=== PATIENT | male | born 1945 | race Caucasian/White ===

== ENCOUNTER 2019-06-12 19:40 | Observation (INO) | payer MEDICARE, OTHER ==
[~2019-06-12] VITALS: Ht 177.8 cm; Wt 95.3 kg
[2019-06-12] MEDS ORDERED: ZOCOR10 MG PO (19:49)
[2019-06-12] MEDS ORDERED: COZAAR50 MG PO (19:49)
--- NOTE | 2019-06-12 19:54 | NUR ---
PT REPORTS PT HAS 325 OF ASPIRIN AT 1800. PT REPORTS NAUSEA AFTER ASPIRIN.PT DENIES MEMORY OF THIS.
--- NOTE | 2019-06-12 20:01 | NUR ---
PT REPORTS SHE NOTICED CHANGE IN MENTAL STATUS AROUND 1630.
[2019-06-12 20:59] LABS: BASOPHILS 0.2 % (0-2); EOSINOPHILS 0.3 % (0-7); HEMOGLOBIN 14.8 g/dL (13.5-17.5); IMMATURE GRANULOCYTES 0.2 % (0-5); LYMPHOCYTES 10.2 % (15-50); MCH 31.9 pg (26.0-34.0); MCHC 34.4 g/dL (31.0-37.0); MCV 92.7 fL (80.0-100.0); MEAN PLATELET VOLUME 10.6 fL (7.4-10.4); MONOCYTES 4.7 % (2-11); NEUTROPHILS 84.4 % (40-80); PLATELET COUNT 160 10x3/uL (130-400); RBC 4.64 10x6/uL (4.20-6.10); RDW 12.9 % (11.5-14.5); WBC 12.9 10x3/uL (4.8-10.8)
[2019-06-12 21:00] VITALS: BP 157/89
--- NOTE | 2019-06-12 21:03 | NUR ---
FSBS 111. EDP DOWNEN NOTIFIED.
[2019-06-12 21:26] LABS: ALBUMIN 4.3 g/dL (3.4-5.0); ANION GAP 12.3 mmol/L (8-16); BILIRUBIN - TOTAL 0.7 mg/dL (0.2-1.3); CALCIUM 8.9 mg/dL (8.5-10.1); CARBON DIOXIDE 29.4 mmol/L (21.0-32.0); CREATININE - SERUM 1.5 mg/dL (0.6-1.3); POTASSIUM - SERUM 4.7 mmol/L (3.5-5.1); PROTEIN - SERUM 6.9 g/dL (6.4-8.2)
--- NOTE | 2019-06-12 21:41 | NUR ---
PT PROVIDED WITH WATER AND CRACKERS.
[2019-06-12 22:11] LABS: CKMB 0.9 U/L (0.0-3.6); CREATINE KINASE 160 UL (21-232); TROPONIN-I < 0.017 ng/mL (0.000-0.060)
--- NOTE | 2019-06-12 22:30 | NUR ---
PT REPORTS FEELING "MUCH BETTTER" AFTER TWO GLASSES OF WATER AND SOME CCRACKERS. PT STATES "I DONT KNOW WHAT WAS WRONG WITH ME BUT I FEEL LIKE IM BETTER NOW." PT ABLE TO STAND. PT ALERT AND ORIENTED TO PERSON, PLACE, AND TIME.
[2019-06-12 22:53] VITALS: BP 170/74
[2019-06-12 23:13] LABS: APPEARANCE CLEAR (CLEAR); BILIRUBIN NEGATIVE (NEGATIVE); COLOR YELLOW (YELLOW); GLUCOSE NEGATIVE (NEGATIVE); KETONE NEGATIVE (NEGATIVE); NITRITE NEGATIVE (NEGATIVE); PROTEIN NEGATIVE (NEGATIVE); UROBILINOGEN NORMAL (NORMAL)
[2019-06-12 23:56] VITALS: BP 160/89
--- NOTE | 2019-06-13 00:20 | NUR ---
ULTRASOUND IN ROOM.
--- NOTE | 2019-06-13 01:00 | NUR ---
PT TO ROOM VIA W/C.
--- NOTE | 2019-06-13 01:02 | NUR ---
REC'D TO ROOM 2215 PER W/C FROM E DEPT A 74 Y/O W/M PER SERVICES DR. DE LA TORRE WITH DX TIA NKDA. ALERT/ORIENTED X4 HE DOES HAVE MEMORY LOSS OF EVENTS AT HOME AROUND 1730. HE IS HOWEVER ALERT AND ORIENTED X4 AT THIS TIME. [place]ONS FOLLOWS COMMANDS SPEECH CLEAR AND APPROPRIATE. 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 IV LEFT AC OF NS AT 75CC'S/HR AT BEDSIDE.
[2019-06-13 01:58] VITALS: BP 160/84; BMI 30.1
[2019-06-13] MEDS ORDERED: BAYER ASPIRIN325 MG PO (02:09)
[2019-06-13] MEDS ORDERED: MULTI-DAY VITAM1 TAB PO (02:11)
--- NOTE | 2019-06-13 05:00 | NUR ---
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
[2019-06-13 05:11] VITALS: BP 119/60
[2019-06-13 06:21] LABS: BASOPHILS 0.1 % (0-2); EOSINOPHILS 0.9 % (0-7); HEMATOCRIT 41.5 % (42.0-54.0); HEMOGLOBIN 14.2 g/dL (13.5-17.5); IMMATURE GRANULOCYTES 0.1 % (0-5); LYMPHOCYTES 27.8 % (15-50); MCH 31.3 pg (26.0-34.0); MCHC 34.2 g/dL (31.0-37.0); MCV 91.6 fL (80.0-100.0); MEAN PLATELET VOLUME 10.7 fL (7.4-10.4); MONOCYTES 9.1 % (2-11); PLATELET COUNT 180 10x3/uL (130-400); RBC 4.53 10x6/uL (4.20-6.10)
[2019-06-13 06:26] LABS: WBC 7.8 10x3/uL (4.8-10.8)
[2019-06-13 06:56] LABS: ALBUMIN 3.8 g/dL (3.4-5.0); ALKALINE PHOSPHATASE 78 U/L (46-116); ALT (SGPT) 20 U/L (10-68); BILIRUBIN - TOTAL 0.87 mg/dL (0.2-1.3); CALC OSMOLALITY 282 mosm/kg (275-300); CALCIUM 8.7 mg/dL (8.5-10.1); CARBON DIOXIDE 26.9 mmol/L (21.0-32.0); CHLORIDE - SERUM 104 mmol/L (98-107); CKMB 0.9 U/L (0.0-3.6); CREATINE KINASE 143 UL (21-232); CREATININE - SERUM 1.2 mg/dL (0.6-1.3); GLUCOSE 108 mg/dL (74-106); MAGNESIUM - SERUM 2.2 mg/dL (1.8-2.4); PROTEIN - SERUM 6.8 g/dL (6.4-8.2); SODIUM 140 mmol/L (136-145); TROPONIN-I < 0.017 ng/mL (0.000-0.060); UREA NITROGEN 20 mg/dL (7-18); eGFR NON AFRICAN AMERICAN 63 mL/min (90-120)
[2019-06-13 06:57] LABS: POTASSIUM - SERUM 3.7 mmol/L (3.5-5.1)
--- NOTE | 2019-06-13 08:00 | NUR ---
ASSESSMENT PER FLOW SHEET. PT IS WITHOUT DISTRESS.CALL LIGHT IN REACH. AT BEDSIDE.
[2019-06-13 08:28] VITALS: BP 129/65
[2019-06-13 09:08] LABS: CHOL - HDL RATIO 3.2 ratio (2.3-4.9); LDL-HDL RATIO 1.9 ratio (1.5-3.5)
[2019-06-13 12:27] VITALS: Ht 177.8 cm; Wt 95.3 kg
[2019-06-13 13:13] VITALS: BP 141/86
--- NOTE | 2019-06-13 15:10 | NUR ---
IV DCD WITH CATH TIP INTACT.DC INSTRUCTIONS,STATES UNDERSTANDING.
--- NOTE | 2019-06-13 15:11 | NUR ---
LEFT UNIT VIA WHEELCHAIR
--- NOTE | 2019-06-15 13:30 | EC ---
PATIENT:JAH CABRERA DATE OF SERVICE: 06/12/19 SEX: M MEDICAL RECORD: [id number] DATE OF : 43 LOCATION:[facility] AGE OF PATIENT: 74 ADMISSION DATE: 06/12/19 REFERRING PHYSICIAN: INTERPRETING PHYSICIAN: ARIADNA BRYSON MD ECHOCARDIOGRAM REPORT ECHO CHARGES 4 ECHO COMPLETE Date: 06/13/19 CLINICAL DIAGNOSIS: TIA ECHOCARDIOGRAPHIC MEASUREMENTS (adult normal given) AC root (d.<3.7cm) 3.3 cm LV Septum d (<1.2 cm> 1.3 cm Valve Excursion 2.3 cm LV Septum (systole) 2.0 cm Left Atria (s.<4.0cm> 3.2 cm LVPW d(<1.2cm) 1.3 cm RV (d.<2.3cm) 3.5 cm LVPW (sytole) 2.1 cm LV diastole(<5.6CM) 5.6 cm MV E-F(>70mm/sec) cm LV systole 3.2 cm LVOT Diameter 2.1 cm MV exc.(>10mm) cm Est.ejection fraction (50-75%) % DOPPLER: LVIT cm/sec A 62.0 cm/sec E 80.0 cm/sec LA cm/sec RVSP 32.0 mmHg LVOT 111 cm/sec AOP1/2T m/s Asc. Ao 132 cm/sec RVOT 58.0 cm/sec RA cm/sec PA 82.0 cm/sec AV Gradient Peak 7.0 mmHg AV Mean 3.9 mmHg AV Area 2.3 cm MV Gradient Peak 5.1 mmHg MV Mean 2.1 mmHg MV Area cm COMMENTS: Manager Banquet: 1 FELIPA KOOOE Geodesist: 2 Dr. Aquino TAPE# PACS Pericardial Effusion N DATE OF SERVICE: PROCEDURE: Echocardiogram. FINDINGS: 1. Left ventricular chamber size is mildly dilated. Left ventricular systolic function is preserved at 55% to 60%. 2. Left atrium is within normal limits at 3.2 cm. Right atrium and right ventricular chamber sizes are mildly dilated. 3. Valvular structures have normal structure and motion. ECHOCARDIOGRAM REPORT [id number] JAH CABRERA 4. Doppler interrogation reveals mild mitral regurgitation, no other valvular insufficiency or stenosis. Pulmonary systolic pressure is estimated at 32 mmHg. 5. No evidence of pericardial effusion or left ventricular thrombus. TRANSINT:[id number] Voice Confirmation ID: [id number] DOCUMENT ID: [id number] ARIADNA BRYSON MD at 1330 CC: [id number] DICTATION DATE: 06/13/19 1212 COPY READER: 06/13/19 1347 DIS IN 06/13/19 [facility] [address] [id number]
== END 2019-06-13 15:11 | disposition home or self-care (01) ==
LOC: D.ER 19:40 → OBSVTIME 23:52 → D.MS 23:52
PROVIDERS: Family Medicine; ADMIT Internal Medicine Nephrology; ATTEND Internal Medicine Nephrology
DX: G45.9 Transient cerebral ischemic attack, unspecified (principal); K59.00 Constipation, unspecified; I10 Essential (primary) hypertension; E78.5 Hyperlipidemia, unspecified